=== PATIENT | male | born 1940 | race Caucasian/White ===

== ENCOUNTER 2018-01-07 12:35 | Inpatient (IN) | payer OTHER ==
[~2018-01-07] VITALS: Ht 172.7 cm; Wt 55.8 kg
--- NOTE | ~2018-01-07 | P ---
[facility] [place] [address] PROCEDURE REPORT Name: FREDO RASCON Clarence Room #: 222-P [facility] IN M.R.#: [id number] Admission: 01/07/18 Attend Phys: Levon London MD Discharge: Date of : 41 Report #: [id number] THIS REPORT FOR: //name// CC: Raffy Rogers MD [facility] Karley London INPATIENT COLONOSCOPY REPORT BRIEF HISTORY: The patient is a 77-year-old male with change in bowel habits, rectal bleeding, abdominal pain and weight loss. POSTOPERATIVE DIAGNOSIS: Multiple colon polyps. MEDICATIONS: Deep sedation with propofol per anesthesia. SPECIMENS: 1. Cecal polyp. 2. Polyp at 60 cm. 3. Polyp at 40 cm. ESTIMATED BLOOD LOSS: 3 mL. PROCEDURE: Colonoscopy to cecum and terminal ileum with snare polypectomy. FINDINGS: Prior to propofol sedation, the procedure of colonoscopy discussed with the patient as well as potential risks and its complications. He indicates he understands and desires to proceed. DESCRIPTION OF PROCEDURE: With the patient in the left lateral decubitus position, digital examination was completed, which revealed no abnormalities. Subsequently, the Olympus video colonoscope was introduced into the rectum, advanced under direct vision to the cecum. Done with minimal difficulty. The cecum was identified by the ileocecal valve and the appendiceal orifice. I was able to visualize the distal segment of the terminal ileum, which was inspected and noted to be unremarkable. At that point, the scope was slowly withdrawn and careful circumferential views obtained, including retroflexing the scope in the ascending colon. Upon slow withdrawal of the scope, the prep had some limitations, but with vigorous irrigation and suctioning, we were able to obtain a good prep. The mucosa was within normal limits. Normal vascular pattern, normal light reflex. In the cecum, a 6-mm slightly nodular flat polyp was seen and removed by cold snare polypectomy. At 60 cm, a 12-mm flat polyp was seen and removed by cold snare polypectomy was completed with biopsy forceps. Scope was further withdrawn and no additional abnormalities were noted until about 40 cm, at which point, a diminutive polyp was seen and removed by biopsy. Scope [facility] [address] [place] [address] PROCEDURE REPORT Name: TARAHFREDO Clarence Room #: 222-P ADM IN M.R.#: [id number] Admission: 01/07/18 Attend Phys: Levon London MD Discharge: Date of : 41 Report #: [id number] was withdrawn in the rectum. Upon retroflexion, no abnormalities were seen. Scope was withdrawn. The patient tolerated the procedure well. DISPOSITION: The patient with change in bowel habits, rectal bleeding, abdominal pain and weight loss. As far as the bleeding, I do not see any bleeding lesions. Blood likely came from the anal canal, though I do not see any lesions today. As far as his constipation, I do not see any obstructing lesion, suggest he use MiraLax on a daily basis. We will follow up on the path and make recommendations with regard to his polyps. Due to the fact that one of the polyps was more than 12 mm, we will have him return in 3 years for followup colonoscopy. <ELECTRONICALLY SIGNED> By: Fredo Basurto MD 01/13/18 0732 1401 0128 Fredo Basurto MD /nt
--- NOTE | ~2018-01-07 | PATH ---
[facility] [place] [address] PATHOLOGY RPT PROCEDURE Name: FREDO RASCON Clarence Room #: 222-P ADM IN M.R.#: [id number] Admission: 01/07/18 Date of : 41 Discharge: Report #: [id number] Path Case #: [id number] [facility] Accession Number: [id number] . 01 Material submitted: . PART A: GASTRITIS BIOPSY R/O H PYLORI PART B: CECAL POLYP PART C: COLON POLYP AT 60CM PART D: COLON POLYP AT 40CM BIOPSY . 01 Clinical history: . Pre-OP DX: Abdominal pain, dysphagia Post-OP DX: Gastritis, small hilar hernia, colon polyps . 02 Diagnosis: A. Gastric biopsy: - Mild chronic gastritis arising in the background of chronic reactive gastropathy. - Focal intestinal metaplasia. - The immunoperoxidase stains for Helicobacter pylori is negative. . B. Colon biopsy, "cecal polyp": - Fragments of tubular adenoma. - There is no evidence of high-grade dysplasia or malignancy. . C. Colon biopsy, "colon polyp at 60 cm": - Tubular adenoma. - There is no evidence of high-grade dysplasia or malignancy. . D. Colonic mucosa, "colon polyp at 40 cm", biopsy: - Tubular adenoma. - There is no evidence of high-grade dysplasia or malignancy. . (SHA:juana; 01/13/2018) ELXY/01/13/2018 . 02 Electronically signed: . Ra Gifford MD, Pathologist NPI- [id number] . 01 Gross description: . A. Received in formalin labeled "Fredo Rascon, gastritis, rule out H. pylori," are 4 segments of anton soft tissue measuring 1.2 x 0.7 x 0.2 cm in aggregate dimensions and ranging from 0.4 to 0.5 cm in maximum dimension. The specimen is submitted entirely in cassette A1. . B. Received in formalin labeled "Fredo Rascon, cecal polyp," [place] [address] PATHOLOGY RPT PROCEDURE Name: FREDO RASCON Room #: 222-P [facility] IN M.R.#: [id number] Admission: 01/07/18 Date of : 41 Discharge: Report #: [id number] Path Case #: [id number] segment of anton soft tissue measuring 0.8 cm in maximum dimension. The specimen is entirely submitted in cassette B1. . C. Received in formalin labeled "Fredo Rascon, colon polyp 60 cm," are multiple segments of anton soft tissue measuring 1.8 x 0.2 x 0.1 cm in aggregate dimensions. The specimen is filtered and entirely submitted in cassette C1. . D. Received in formalin labeled "Fredo Rascon, colon polyp at 40 cm," is a single segment of anton soft tissue measuring 0.4 cm in maximum dimension. The specimen is entirely submitted in cassette D1. (TSD; 01/12/2018) TOB/TOB . 02 Pathologist provided ICD-10: K29.50, K31.9, D12.0, D12.6 . 02 CPT . 460308, 528900, 331343, 563125, D81228 Specimen Comment: A courtesy copy of this report has been sent to Specimen Comment: [phone], , , . Specimen Comment: Report sent to ,DR STANLEY,DR SNYDER / DR SOLO Specimen Comment: A duplicate report has been generated due to demographic updates. Performed at: [address] [facility], [place], [place] [id number] MD Reji Martinez MD Phone: [phone] Performed at: [address] [facility] [id number] MD Mary Ritchie MD Phone: [phone]
--- NOTE | ~2018-01-07 | EKG ---
[facility] [place] [address] [place] [address] ELECTROCARDIOGRAM REPORT Name: FREDO RASCON Room #: REG RENETTA Bailon#: [id number] Admission: 01/07/18 Attend Phys: Discharge: Date of : 41 Report #: [id number] THIS REPORT FOR: //name// [facility] ED Test Date: 2018-01-07 Test Time: 13:52:04 Pat Name: FREDO RASCON Department: Room: Gender: Conveyor Loader: hayden : 1940 Requested By: Anjana Ontiveros Order Number: [id number] MD: Measurements Intervals [place] Rate: 73 P: 100 MS: 239 QRS: 61 QRSD: 91 T: -23 QT: 379 QTc: 418 Interpretive Statements Sinus rhythm Atrial premature complexes Prolonged MS interval Borderline T abnormalities, inferior leads Compared to ECG 10/11/2015 06:58:46 Atrial premature complex(es) now present T-wave abnormality still present [email or web address] By: 1352 1352 Epiphany Epiphany, /EPI
--- NOTE | ~2018-01-07 | P ---
[facility] [place] [address] PROCEDURE REPORT Name: FREDO RASCON Clarence Room #: 222-P [facility] IN M.R.#: [id number] Admission: 01/07/18 Attend Phys: Levon London MD Discharge: Date of : 41 Report #: [id number] THIS REPORT FOR: //name// CC: Raffy Rogers MD [facility] Karley London DATE OF SERVICE: 01/07/2018 BRIEF HISTORY: The patient is a 77-year-old male with abdominal pain. He also has had bouts of solid food dysphagia. In addition, there has been weight loss. PREOPERATIVE DIAGNOSES: Abdominal pain, dysphagia, weight loss. POSTOPERATIVE DIAGNOSES: Moderate diffuse gastritis. MEDICATIONS: Deep sedation with propofol per anesthesia. SPECIMEN: Biopsies of gastritis. ESTIMATED BLOOD LOSS: 3 mL. PROCEDURE: EGD with biopsy, Flood dilation. FINDINGS: Prior to propofol sedation, procedure of upper endoscopy discussed with the patient as well as potential risks and its complications. He indicates he understands and desires to proceed. DESCRIPTION OF PROCEDURE: With the patient in left lateral decubitus position, the Olympus video endoscope was inserted in the cervical esophagus under direct vision without difficulty. Examination of this organ through its length revealed normal esophageal mucosa down the squamocolumnar junction. The squamocolumnar junction was inspected and noted to be unremarkable. No ulcers or erosions were seen. However, a small hiatus hernia was noted. The mucosa and hernia was unremarkable. In view of his dysphagia, stricture was not seen. Scope was advanced in the stomach, was examined on end view as well as retroflexed views. There was a pattern of a diffuse erythematous gastritis involving essentially the entire stomach; however, the mucosa was intact. No ulcers or erosions were seen. There were no retained solids or liquids in the stomach. Upon retroflexion, no abnormalities were noted. The pylorus, duodenal bulb and postbulbar duodenal sweep were inspected and noted to be unremarkable. At that point, scope was withdrawn. Careful circumferential views confirmed the above finding. The patient tolerated the procedure well. Biopsies obtained of the gastritis. [address] [address] PROCEDURE REPORT Name: FREDO RASCON Room #: 222-P [facility] IN M.R.#: [id number] Admission: 01/07/18 Attend Phys: Levon London MD Discharge: Date of : 41 Report #: [id number] Subsequently, he was dilated with passage of a 50-English Flood dilator due to symptoms of dysphagia. DISPOSITION: The patient with abdominal pain and also dysphagia. I did not find evidence of a stricture. However, based on symptoms, he was dilated. Part of his problem may be the fact that he is edentulous. If dilation helps, we can repeat on as needed basis in the future. We will follow up on biopsies. We will treat empirically at this point with a PPI or H2 lynne. Proceed with colonoscopy for evaluation of his change in bowel habits and rectal bleeding. <ELECTRONICALLY SIGNED> By: Fredo Basurto MD 01/13/18 0732 1316 0123 Fredo Basurto MD /nt
[~2018-01-07 12:35] MED LIST: ACID CONTROL20 MG PO; ALTACE10 M1 PO; ASPIRIN325 PO; BACTRIM 400-801 EACH; BACTRIM DS TAB1 EACH PO; BENICAR; BENICAR40 MG PO; BROVANA15 MCG/2 M IH; CELEBREX 200 M200 M1 PO; CELEBREX 200 M200 MG PO; CELEBREX50 MG; CYCLOBENZAPRINE10 MG; EFFIENT10 MG PO; FEXOFENADINE-P1 EACH PO; FISHOIL PO; FLEXERIL PO; LIPITOR80 MG PO; LOPRESSOR PO; NITROGLYCERIN0.4 MG SL; NORCO 5-325 TA1 EACH PO; PLAVIX 75 MG TA75 M1; PLAVIX 75 MG TA75 M1 PO; PLAVIX 75 MG TA75 MG PO; SPIRIVA INH; TAMSULOSIN HCL0.4 M1; TOPROL XL25 MG PO; ZETIA10 MG PO
[2018-01-07 12:38] VITALS: BP 123/75
[2018-01-07 13:31] LABS: ABSOLUTE NEUTROPHILS 6.7 thou/uL (1.4-8.2); BASOPHILS 1.3 % (0.0-2.0); EOSINOPHILS 1.8 % (0.0-3.0); HEMATOCRIT 44.2 % (42.0-52.0); LYMPHOCYTES 13.6 % (24.0-44.0); MCH 29.7 pg (26.0-34.0); MCHC 33.9 g/dL (28.0-37.0); MCV 87.4 fL (80.0-100.0); MONOCYTES 4.4 % (1.0-8.0); PLATELET COUNT 274 thou/uL (150-400); POLYS 78.9 % (36.0-66.0); RBC 5.06 mil/uL (4.50-6.00); RDW 16.1 % (10.5-14.5); WBC 8.5 thou/uL (4.0-11.0)
[2018-01-07 13:40] LABS: CALCIUM 9.8 mg/dL (8.5-10.1); POTASSIUM 4.5 mmol/L (3.5-5.1)
[2018-01-07 13:46] LABS: ALBUMIN 3.7 g/dL (3.4-5.0); TOTAL BILIRUBIN 0.5 mg/dL (<0.1-1.0); TOTAL PROTEIN 7.8 g/dL (6.4-8.2)
[2018-01-07 14:23] LABS: URINE BILIRUBIN NEGATIVE (Negative); URINE BLOOD 2+ (Negative); URINE CLARITY CLEAR; URINE COLOR YELLOW; URINE GLUCOSE-RANDOM* NEGATIVE (Negative); URINE KETONES NEGATIVE (Negative); URINE LEUKOCYTES-REFLEX NEGATIVE (Negative); URINE NITRITE-REFLEX NEGATIVE (Negative); URINE PROTEIN (DIPSTICK) NEGATIVE (Negative); URINE SPECIFIC GRAVITY 1.025 (1.005-1.035); URINE UROBILINOGEN 0.2 E.U./dl (0.2-1.0)
[2018-01-07 14:35] LABS: BACTERIA-REFLEX 1-9 Few /HPF (None Seen); CASTS None Seen /LPF (None Seen); CRYSTALS None Seen /LPF (None Seen); SQUAMOUS None Seen /LPF (0-3); URINE RBC 3-10 Few /HPF (0-2); URINE WBC-REFLEX 0-5 Rare /HPF (0-5)
[2018-01-07] MEDS ORDERED: PHENERGAN 25 MG25 M1 PO (15:49)
[2018-01-07] MEDS ORDERED: MIRALAX17 GM PO (15:49)
[2018-01-07 19:38] VITALS: BP 121/67
[2018-01-07 19:49] VITALS: BP 121/67
[2018-01-07 21:44] VITALS: BP 110/56
[2018-01-08] VITALS (7 sets, daily range): BP systolic 99–146; BP diastolic 47–65
[2018-01-08 05:59] LABS: HEMATOCRIT 39.2 % (42.0-52.0); MCHC 33.1 g/dL (28.0-37.0); MCV 87.5 fL (80.0-100.0); RBC 4.48 mil/uL (4.50-6.00); RDW 16.2 % (10.5-14.5); WBC 9.1 thou/uL (4.0-11.0)
[2018-01-08 06:01] LABS: CALCIUM 8.9 mg/dL (8.5-10.1); CREATININE 0.9 mg/dL (0.7-1.3); POTASSIUM 4.5 mmol/L (3.5-5.1)
[2018-01-09] VITALS (7 sets, daily range): BP systolic 95–128; BP diastolic 44–70
[2018-01-09 07:25] LABS: ABSOLUTE NEUTROPHILS 5.8 thou/uL (1.4-8.2); BASOPHILS 1.2 % (0.0-2.0); EOSINOPHILS 2.3 % (0.0-3.0); HEMATOCRIT 37.4 % (42.0-52.0); HEMOGLOBIN 12.8 gm/dL (14.0-18.0); LYMPHOCYTES 10.4 % (24.0-44.0); MCH 29.8 pg (26.0-34.0); MCHC 34.2 g/dL (28.0-37.0); MCV 87.3 fL (80.0-100.0); MONOCYTES 6.6 % (1.0-8.0); PLATELET COUNT 230 thou/uL (150-400); POLYS 79.5 % (36.0-66.0); RBC 4.29 mil/uL (4.50-6.00); RDW 15.7 % (10.5-14.5); WBC 7.3 thou/uL (4.0-11.0)
[2018-01-09 07:35] LABS: CALCIUM 8.5 mg/dL (8.5-10.1); MAGNESIUM 1.9 mg/dL (1.8-2.4); POTASSIUM 3.9 mmol/L (3.5-5.1)
[2018-01-09 08:07] LABS: FOLIC ACID 5.4 ng/mL (8.6-58.9)
[2018-01-10 08:17] VITALS: BP 149/63
[2018-01-10 09:49] LABS: ABSOLUTE NEUTROPHILS 4.4 thou/uL (1.4-8.2); BASOPHILS 1.4 % (0.0-2.0); EOSINOPHILS 5.1 % (0.0-3.0); HEMATOCRIT 39.4 % (42.0-52.0); HEMOGLOBIN 13.1 gm/dL (14.0-18.0); LYMPHOCYTES 15.5 % (24.0-44.0); MCH 29.3 pg (26.0-34.0); MCHC 33.4 g/dL (28.0-37.0); MCV 87.7 fL (80.0-100.0); PLATELET COUNT 250 thou/uL (150-400); RBC 4.49 mil/uL (4.50-6.00); RDW 15.8 % (10.5-14.5); WBC 6.3 thou/uL (4.0-11.0)
[2018-01-10 10:06] LABS: ALBUMIN 3.1 g/dL (3.4-5.0); CALCIUM 8.9 mg/dL (8.5-10.1); CREATININE 0.9 mg/dL (0.7-1.3); MAGNESIUM 2.1 mg/dL (1.8-2.4); POTASSIUM 4.4 mmol/L (3.5-5.1); TOTAL BILIRUBIN 0.5 mg/dL (<0.1-1.0); TOTAL PROTEIN 6.4 g/dL (6.4-8.2)
[2018-01-10 19:48] VITALS: BP 136/72
[2018-01-11 07:56] VITALS: BP 134/62
[2018-01-11 08:39] LABS: ABSOLUTE NEUTROPHILS 7.6 thou/uL (1.4-8.2); BASOPHILS 1.4 % (0.0-2.0); EOSINOPHILS 1.1 % (0.0-3.0); HEMOGLOBIN 14.1 gm/dL (14.0-18.0); LYMPHOCYTES 11.9 % (24.0-44.0); MCH 29.5 pg (26.0-34.0); MCHC 33.6 g/dL (28.0-37.0); MCV 87.8 fL (80.0-100.0); MONOCYTES 6.9 % (1.0-8.0); PLATELET COUNT 279 thou/uL (150-400); POLYS 78.7 % (36.0-66.0); RBC 4.79 mil/uL (4.50-6.00); RDW 15.2 % (10.5-14.5); WBC 9.6 thou/uL (4.0-11.0)
[2018-01-11 08:54] LABS: CALCIUM 8.6 mg/dL (8.5-10.1); POTASSIUM 4.2 mmol/L (3.5-5.1)
[2018-01-11 20:00] VITALS: BP 158/68
[2018-01-12 06:54] LABS: ABSOLUTE NEUTROPHILS 13.8 thou/uL (1.4-8.2); BASOPHILS 0.3 % (0.0-2.0); HEMATOCRIT 35.3 % (42.0-52.0); LYMPHOCYTES 2.4 % (24.0-44.0); MCHC 33.8 g/dL (28.0-37.0); MCV 85.9 fL (80.0-100.0); MONOCYTES 5.3 % (1.0-8.0); PLATELET COUNT 245 thou/uL (150-400); RBC 4.11 mil/uL (4.50-6.00); RDW 15.2 % (10.5-14.5)
[2018-01-12 06:58] LABS: HEMOGLOBIN 11.9 gm/dL (14.0-18.0)
[2018-01-12 07:04] LABS: POTASSIUM 3.4 mmol/L (3.5-5.1)
[2018-01-12 07:40] VITALS: BP 94/53
[2018-01-12 22:47] VITALS: BP 95/53
[2018-01-13 07:24] LABS: HEMATOCRIT 35.4 % (42.0-52.0); MCH 29.5 pg (26.0-34.0); MCHC 33.9 g/dL (28.0-37.0); MCV 87.2 fL (80.0-100.0); PLATELET COUNT 171 thou/uL (150-400); RBC 4.06 mil/uL (4.50-6.00); RDW 15.4 % (10.5-14.5); WBC 6.5 thou/uL (4.0-11.0)
[2018-01-13 07:45] LABS: ALBUMIN 2.2 g/dL (3.4-5.0); CALCIUM 7.9 mg/dL (8.5-10.1); CREATININE 0.9 mg/dL (0.7-1.3); MAGNESIUM 1.7 mg/dL (1.8-2.4); POTASSIUM 3.8 mmol/L (3.5-5.1); TOTAL BILIRUBIN 0.5 mg/dL (<0.1-1.0); TOTAL PROTEIN 4.7 g/dL (6.4-8.2)
[2018-01-13 08:06] VITALS: BP 101/58
[2018-01-13 08:54] LABS: ABSOLUTE NEUTROPHILS 4.9 thou/uL (1.4-8.2); ANISOCYTOSIS 1+
[2018-01-13 22:52] VITALS: BP 124/61
[2018-01-14 07:35] VITALS: BP 143/70
[2018-01-14 20:11] VITALS: BP 130/65
[2018-01-15 08:11] VITALS: BP 110/64
[2018-01-15 09:55] VITALS: BP 110/64
[2018-01-15] MEDS ORDERED: PEPCID20 MG PO (10:52)
== END 2018-01-15 16:57 | disposition home health service (06) | DRG 391 ==
LOC: ER 12:35 → EROBS 16:31 → ER 16:31 → 4E 19:39 → SICU 20:07 → 4E 20:07 → SICU 01-08 09:22 → ENTRNSPT 01-15 16:37 → SICU 01-15 16:57
PROVIDERS: Emergency Medicine; Hospitalist; Nurse Practitioner Family
PROC: 0DB68ZX Excision of Stomach, Via Natural or Artificial Opening Endoscopic, Diagnostic (ICD-10-PCS; principal; 2018-01-07)
PROC: 0D758ZZ Dilation of Esophagus, Via Natural or Artificial Opening Endoscopic (ICD-10-PCS; principal; 2018-01-07)
PROC: 0DBH8ZZ Excision of Cecum, Via Natural or Artificial Opening Endoscopic (ICD-10-PCS; 2018-01-13)
DX: K29.70 Gastritis, unspecified, without bleeding (principal); E43 Unspecified severe protein-calorie malnutrition; Z68.1 Body mass index [BMI] 19.9 or less, adult; K62.5 Hemorrhage of anus and rectum; K22.2 Esophageal obstruction; M19.90 Unspecified osteoarthritis, unspecified site; I73.9 Peripheral vascular disease, unspecified; E78.5 Hyperlipidemia, unspecified; I25.5 Ischemic cardiomyopathy; J44.9 Chronic obstructive pulmonary disease, unspecified; K59.00 Constipation, unspecified; I50.9 Heart failure, unspecified; I25.10 Atherosclerotic heart disease of native coronary artery without angina pectoris; K63.5 Polyp of colon; R29.6 Repeated falls; E03.9 Hypothyroidism, unspecified; M62.84 Sarcopenia; E78.00 Pure hypercholesterolemia, unspecified; E53.8 Deficiency of other specified B group vitamins; D64.9 Anemia, unspecified; E16.2 Hypoglycemia, unspecified; F03.90 Unspecified dementia, unspecified severity, without behavioral disturbance, psychotic disturbance, mood disturbance, and anxiety; K44.9 Diaphragmatic hernia without obstruction or gangrene; I11.0 Hypertensive heart disease with heart failure; D36.7 Benign neoplasm of other specified sites; G89.29 Other chronic pain; R13.10 Dysphagia, unspecified; M54.9 Dorsalgia, unspecified; I25.2 Old myocardial infarction; Z88.0 Allergy status to penicillin; Z87.891 Personal history of nicotine dependence; Z79.899 Other long term (current) drug therapy; Z95.5 Presence of coronary angioplasty implant and graft; Z23 Encounter for immunization
CPT/HCPCS: 10084; 15002; 62110; 62900; 70005

== ENCOUNTER 2018-04-06 16:29 | Inpatient (IN) | payer OTHER ==
[~2018-04-06] VITALS: Ht 172.7 cm; Wt 54.7 kg
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
[~2018-04-06 16:29] MED LIST changes: +MIRALAX17 GM PO; +PEPCID20 MG PO; +PHENERGAN 25 MG25 M1 PO
[2018-04-06 16:53] VITALS: BP 109/67
[2018-04-06 17:40] LABS: ABSOLUTE NEUTROPHILS 12.2 thou/uL (1.4-8.2); BASOPHILS 1.3 % (0.0-2.0); EOSINOPHILS 0.8 % (0.0-3.0); HEMATOCRIT 43.4 % (42.0-52.0); HEMOGLOBIN 14.6 gm/dL (14.0-18.0); LYMPHOCYTES 12.5 % (24.0-44.0); MCH 28.2 pg (26.0-34.0); MCHC 33.7 g/dL (28.0-37.0); MCV 83.7 fL (80.0-100.0); MONOCYTES 4.8 % (1.0-8.0); PLATELET COUNT 397 thou/uL (150-400); POLYS 80.6 % (36.0-66.0); RBC 5.19 mil/uL (4.50-6.00); RDW 14.7 % (10.5-14.5); WBC 15.1 thou/uL (4.0-11.0)
[2018-04-06 17:58] LABS: CALCIUM 9.7 mg/dL (8.5-10.1); CREATININE 1.3 mg/dL (0.7-1.3); POTASSIUM 5.2 mmol/L (3.5-5.1)
[2018-04-06 18:05] LABS: ALBUMIN 3.7 g/dL (3.4-5.0); TOTAL BILIRUBIN 0.3 mg/dL (<0.1-1.0)
[2018-04-06 19:42] LABS: URINE BILIRUBIN NEGATIVE (Negative); URINE BLOOD 2+ (Negative); URINE CLARITY CLEAR; URINE COLOR YELLOW; URINE GLUCOSE-RANDOM* NEGATIVE (Negative); URINE KETONES NEGATIVE (Negative); URINE LEUKOCYTES-REFLEX 3+ (Negative); URINE NITRITE-REFLEX NEGATIVE (Negative); URINE PROTEIN (DIPSTICK) TRACE (Negative); URINE UROBILINOGEN 0.2 E.U./dl (0.2-1.0)
[2018-04-06 19:51] LABS: URINE RBC 3-10 Few /HPF (0-2); URINE WBC-REFLEX >25 Many /HPF (0-5)
[2018-04-06 19:52] LABS: CASTS None Seen /LPF (None Seen); CRYSTALS None Seen /LPF (None Seen); SQUAMOUS None Seen /LPF (0-3)
[2018-04-06 21:59] VITALS: BP 141/76
[2018-04-06 22:08] VITALS: BP 142/65
[2018-04-07 04:32] VITALS: BP 129/69
--- NOTE | 2018-04-07 06:12 | NUR ---
PATIENT ARRIVED LAST HS, REPORTS ABDOMINAL PAIN BETTER. ENEMA GIVEN THIS AM AND PT HAD LARGE SOFT STOOL.
[2018-04-07 07:28] VITALS: BP 105/49
[2018-04-07 15:24] VITALS: BP 115/49
--- NOTE | 2018-04-07 15:31 | NUR ---
PT ADMITTED RELATED TO RECTAL PAIN AND CONSTIPATION. CM REVIEWED CHART AND SPOKE WITH CARE TEAM. CM MET WITH PT AT BEDSIDE THIS DAY. PT IS A&O X4. CM ROLE INTRODUCED. PT INDICATED HE LIVES IN A HOUSE WITH HIS SPOUSE WITH NO STEPS TO ENTER AND NO STEPS INSIDE. PT INDICATED NO DME OR HH HX ALTHOUGH PREVIOUS NOTES INDICATE THAT PT HAD DISCHARED WITH SPECIALIZED HH. PT INDICATED HE PLANS TO RETURN HOME WITH NO NEEDS ONCE MEDICALLY STABLE. CM TO FOLLOW INDICATED WITH DC PLANNING.
--- NOTE | 2018-04-07 16:07 | NUR ---
ASSUMED CARE AT 0700. AXOX4. COLITIS/UTI/ELEVATED WBC. SEEN BY AT [facility]. COMFORT DURAN MD WILL REVIEW. OBSTIPATION ADDRESSED. MINERAL ENEMA X 1 RESULTED IN LARGE LIQUIDY BOWEL MOVEMENT. PT/OT ORDERED FOR WEAKNESS. IV FLUIDS GOING. IV ATB FOR COLITIS AND UTI. NAUSEA TREATED WITH ZOFRAN WITH RELIEF. NO S/S ACUTE DISTRESS NOTED OR REPORTED AT THIS TIME. WILL CONT TO MONITOR FOR ANY CHANGES IN CONDITION.
[2018-04-07 17:12] LABS: GLYCOHEMOGLOBIN (HGB A1C) 5.9 % (4.8-5.6)
[2018-04-07 19:35] VITALS: BP 92/65
[2018-04-08 03:40] VITALS: BP 127/58
--- NOTE | 2018-04-08 04:24 | NUR ---
Pt. rested quietly in bed when checked on during frequent rounds. He offers no c/o pain. Uses the urinal. Bed alarm is on.
[2018-04-08 06:18] LABS: CALCIUM 8.5 mg/dL (8.5-10.1); CREATININE 0.9 mg/dL (0.7-1.3); MAGNESIUM 1.9 mg/dL (1.8-2.4); POTASSIUM 4.1 mmol/L (3.5-5.1)
[2018-04-08 07:30] VITALS: BP 124/47
[2018-04-08 12:47] LABS: HEMATOCRIT 36.8 % (42.0-52.0); HEMOGLOBIN 12.3 gm/dL (14.0-18.0); MCH 28.2 pg (26.0-34.0); MCHC 33.4 g/dL (28.0-37.0); MCV 84.5 fL (80.0-100.0); RBC 4.35 mil/uL (4.50-6.00); RDW 14.8 % (10.5-14.5); WBC 8.4 thou/uL (4.0-11.0)
[2018-04-08 14:12] VITALS: BP 104/82
--- NOTE | 2018-04-08 14:28 | NUR ---
ASSUMED PT CARE AT 0645. PT IS A/OX4 WITH NO ISSUES OR CONCERNS. REPORT FROM THAT PT IS D/C TO HOME WITH HOME HEALTH. WILL CONTINUE TO MONITOR
[2018-04-08] MEDS ORDERED: MUCINEX600 MG PO (14:31)
[2018-04-08] MEDS ORDERED: SENNA PLUS TAB1 EACH PO (14:31)
[2018-04-08] MEDS ORDERED: FLAGYL500 M1 PO (14:33)
[2018-04-08] MEDS ORDERED: CIPRO500 MG PO (14:33)
[2018-04-08 14:49] VITALS: BP 104/82
--- NOTE | 2018-04-08 15:32 | NUR ---
per 5n liaison pt appropriate for 5n acute rehab per dr rebolledo, pt in not respective to rehab, will cont watch. pt is respective to home with specialized home health. referral sent possible dc home tomorrow.
--- NOTE | 2018-04-09 05:02 | EKG ---
[address] [place] [address] ELECTROCARDIOGRAM REPORT Name: FREDO RASCON Room #: 451-P [facility] IN M.R.#: [id number] Admission: 04/06/18 Attend Phys: Luz Elena Navarrete MD Discharge: 04/08/18 Date of : 41 Report #: [id number] THIS REPORT FOR: //name// [facility] Test Date: 2018-04-08 Test Time: 13:34:33 Pat Name: FREDO RASCON Department: Room: 451 Gender: M [employer] Supervisor: Jason CARREON : 1940 Requested By: Luz Elena Navarrete Order Number: [id number] MD: Agusto Barrios Measurements Intervals [place] Rate: 74 P: 66 VA: 203 QRS: 53 QRSD: 91 T: 46 QT: 383 QTc: 425 Interpretive Statements Sinus rhythm Atrial premature complexes in couplets Early transition Non specific ST/T wave changes Compared to ECG 01/07/2018 13:52:04 No significant changes Electronically Signed On 04-09-2018 5:01:42 MEDIA SERVICES SPECIALIST by Agusto Barrios [email or web address] <ELECTRONICALLY SIGNED> By: Agusto Barrios MD 04/09/18 0501 1334 1334 Agusto Barrios MD /EPI
--- NOTE | 2018-04-09 08:40 | NUR ---
PATIENT DISCHARGED TO HOME YESTERDAY EVENING. HOME HEALTH ORDERS OBTAINED. DISCHARGE/HOME HEALTH AND DISCHARGE SUMMARY FAXED TO [facility]. CALL PLACED TO [facility]. STATES PATIENT HAS BEEN ACCEPTED AND WILL FACILITATE HOME HEALTH NEEDS ONCE ORDERS RECEIVED. UNIT CM/SW AWARE.
== END 2018-04-08 16:13 | disposition home health service (06) | DRG 871 ==
LOC: ER 16:29 → 4W 20:26 → EROBS 20:26 → 4W 22:05 → ENTRNSPT 04-08 15:16 → EDTRNSPTSTS 04-08 15:19 → 4W 04-08 16:13
PROVIDERS: Nurse Practitioner Acute Care; Physician Assistant; ADMIT Internal Medicine
DX: A41.9 Sepsis, unspecified organism (principal); N17.0 Acute kidney failure with tubular necrosis; N39.0 Urinary tract infection, site not specified; K52.9 Noninfective gastroenteritis and colitis, unspecified; G20 Parkinson's disease; K44.9 Diaphragmatic hernia without obstruction or gangrene; E03.9 Hypothyroidism, unspecified; E88.81 Metabolic syndrome and other insulin resistance; R73.9 Hyperglycemia, unspecified; D72.829 Elevated white blood cell count, unspecified; K59.00 Constipation, unspecified; Z88.0 Allergy status to penicillin; Z79.899 Other long term (current) drug therapy
CPT/HCPCS: 10040; 10045

== ENCOUNTER 2019-03-11 12:12 | Emergency (ER) | payer OTHER ==
[~2019-03-11] VITALS: Ht 172.7 cm; Wt 54.0 kg
[~2019-03-11 12:12] MED LIST changes: +CIPRO500 MG PO; +FLAGYL500 M1 PO; +MUCINEX600 MG PO; +SENNA PLUS TAB1 EACH PO
[2019-03-11 13:14] LABS: ABSOLUTE NEUTROPHILS 8.5 thou/uL (1.4-8.2); BASOPHILS 1.1 % (0.0-2.0); HEMATOCRIT 49.6 % (42.0-52.0); HEMOGLOBIN 16.1 gm/dL (14.0-18.0); LYMPHOCYTES 16.6 % (24.0-44.0); MCH 28.2 pg (26.0-34.0); MCHC 32.4 g/dL (28.0-37.0); MCV 87.1 fL (80.0-100.0); MONOCYTES 7.4 % (1.0-8.0); PLATELET COUNT 426 thou/uL (150-400); POLYS 72.9 % (36.0-66.0); RDW 15.1 % (10.5-14.5); WBC 11.6 thou/uL (4.0-11.0)
[2019-03-11 13:18] LABS: CREATININE 1.2 mg/dL (0.7-1.3)
[2019-03-11 13:23] LABS: ALBUMIN 3.7 g/dL (3.4-5.0); TOTAL BILIRUBIN 0.5 mg/dL (<0.1-1.0); TOTAL PROTEIN 8.2 g/dL (6.4-8.2)
[2019-03-11 14:04] LABS: URINE BLOOD 1+ (Negative); URINE GLUCOSE-RANDOM* NEGATIVE (Negative); URINE KETONES NEGATIVE (Negative); URINE LEUKOCYTES-REFLEX NEGATIVE (Negative); URINE PROTEIN (DIPSTICK) TRACE (Negative); URINE SPECIFIC GRAVITY 1.025 (1.005-1.035)
[2019-03-11 14:09] LABS: ICTOTEST (BILI CONFIRMATORY) Negative (Negative); URINE BILIRUBIN NEGATIVE (Negative); URINE CLARITY SL HAZY; URINE COLOR BROWNISH; URINE NITRITE-REFLEX POSITIVE (Negative)
[2019-03-11] MEDS ORDERED: FLOMAX0.4 MG PO ×2 (14:11)
[2019-03-11 14:15] LABS: SQUAMOUS None Seen /LPF (0-3); URINE RBC 3-10 Few /HPF (0-2); URINE WBC-REFLEX None Seen /HPF (0-5)
[2019-03-11 14:16] LABS: BACTERIA-REFLEX 1-9 Few /HPF (None Seen); CASTS None Seen /LPF (None Seen); CRYSTALS None Seen /LPF (None Seen)
[2019-03-11 14:19] VITALS: BP 148/58
== END 2019-03-11 14:24 | disposition home or self-care (01) ==
LOC: ER 12:12
PROVIDERS: Emergency Medicine
DX: K62.89 Other specified diseases of anus and rectum (principal); R33.9 Retention of urine, unspecified; M54.5 Low back pain; I10 Essential (primary) hypertension; M19.90 Unspecified osteoarthritis, unspecified site; Z87.891 Personal history of nicotine dependence; Z88.0 Allergy status to penicillin

== ENCOUNTER 2019-03-15 13:13 | Inpatient (IN) | payer OTHER ==
[~2019-03-15] VITALS: Ht 172.7 cm; Wt 61.7 kg
--- NOTE | ~2019-03-15 | HC ---
[facility] [place] [address] CONSULTATION Name: RASCONFREDO Clarence Room #: 433-I ADM IN M.R.#: [id number] Admission: 03/15/19 Attend Phys: Aman Owens MD Discharge: Date of : 41 Report #: [id number] THIS REPORT FOR: //name// CC: Aman Bernard Karley Ramsey Preston DATE OF SERVICE: 03/16/2019 CONSULTING PHYSICIAN: Dr. Suh. REASON FOR CONSULTATION: Possible rectal mass. ASSESSMENT: 1. Possible rectal mass. 2. Bright red blood per rectum. 3. Weight loss. 4. Coronary artery disease with stents, on Plavix. RECOMMENDATIONS: 1. Thank you for the consultation. I will follow along. 2. CT scan reviewed. Cannot palpate a mass on TIEN on my exam. We will await the flex sig results. 3. If the patient does have a rectal mass and if the rectal mass is cancerous, he will need staging with either a transrectal ultrasound or MRI with rectal protocol for evaluation of neoadjuvant chemoradiation therapy or surgery. Thank you for the consultation. HISTORY OF PRESENT ILLNESS: The patient is a 78-year-old gentleman who cannot recall much of this history and did not remember who I was after leaving the room and returning several minutes later. Therefore, most of the information was obtained from the chart. The patient presented to the ER with right lower quadrant abdominal pain, rectal bleeding. He currently denies any pain, nausea or vomiting. The patient was in the ER on 03/11/[address] scan of the abdomen and pelvis. At that time, he had a Marie catheter placed for urinary retention and was sent home. He had return of symptoms and re-presented to the hospital. The patient endorses chronic constipation history and a recent history of bright red blood per rectum for the last one month. He has lost approximately 40 pounds in the last 1 year. He has minimal appetite. He did have a recent colonoscopy in 2018. PAST MEDICAL HISTORY: 1. Coronary artery disease, status post several stents, on Plavix. [facility] [address] [place] [address] CONSULTATION Name: RASCONFREDO Room #: 433-I [facility] IN ..#: [id number] Admission: 03/15/19 Attend Phys: Aman Owens MD Discharge: Date of : 41 Report #: [id number] 2. COPD. 3. Arthritis. 4. History of colon polyps. 5. Hypertension. 6. CHF with ejection fraction of 25-30%. 7. Peripheral vascular disease. PAST SURGICAL HISTORY: 1. Right wrist surgery. 2. The patient adamantly denies abdominal surgery. SOCIAL HISTORY: Former smoker, no alcohol use, no drug use. FAMILY HISTORY: He is unaware of any family condition due to his family splitting up when he was 8 or 9 years old. REVIEW OF SYSTEMS: CONSTITUTIONAL: No fever. No chills. HEENT: Denies blurring of vision, double vision, headaches, hearing loss, sinus drainage or sore throat. Denies blurring of vision, double vision, headaches, hearing loss, sinus drainage or sore throat. CARDIOVASCULAR: See above and below. PULMONARY: See above and below. GASTROINTESTINAL: See above and below. GENITOURINARY: Denies dysuria or hematuria or kidney stones. No urinary frequency, urgency or incontinence. Denies dysuria or hematuria or kidney stones. No urinary frequency, urgency or incontinence. MUSCULOSKELETAL: No joint pain. No muscle pain. NEUROLOGICAL: Denies tremor, stroke or seizure. Denies tremor, stroke or seizure. HEMATOLOGIC / LYMPHATICS: Denies easy bruising, easy bleeding or enlarged lymph nodes. SKIN: No rash or ulceration. ENDOCRINE: No heat or cold intolerance PSYCHIATRIC: Denies depression, anxiety, or schizophrenia. PHYSICAL EXAMINATION: VITAL SIGNS: Temperature 36.7, pulse 59, respiratory rate 18, blood pressure 132/59, pulse ox 95% on room air. GENERAL: No apparent distress, alert and oriented x3. HEENT: PERRLA, EOMI, MMM, NCAT NECK: Supple. No LAD CARDIOVASCULAR: Regular rhythm and rate. Hemodynamically stable. Normal capillary refill. Regular rhythm and rate. Hemodynamically stable. Normal capillary refill. PULMONARY: Nonlabored. Clear to auscultation bilaterally [facility] [address] [place] [address] CONSULTATION Name: FREDO RASCON Room #: 433-I [facility] IN M.R.#: [id number] Admission: 03/15/19 Attend Phys: Aman Owens MD Discharge: Date of : 41 Report #: [id number] ABDOMEN: Soft, nontender, nondistended, no guarding, rebound or rigidity. RECTAL: Normal external appearance, minimal hemorrhoid disease. Normal sphincter tone. No masses palpated on digital rectal exam. EXTREMITIES: Calves soft, nontender, no edema. SKIN: No rashes or bruises. PSYCHIATRIC: Normal mood and affect Normal mood and affect NEUROLOGICAL: Grossly intact. CN II-XII grossly intact. MUSCULOSKELETAL: 5/5 strength in upper extremities and lower extremities bilaterally LYMPHATICS: No cervical, inguinal, or supraclavicular lymphadenopathy. LABORATORY DATA: White blood count 7.5, hemoglobin 13.6, hematocrit 41, platelets 315. Sodium 141, potassium 3.6, creatinine 1, total bilirubin 0.2, AST 13, ALT 15, alkaline phosphatase 122, albumin 3. CT OF THE CHEST: Impression: Extensive COPD changes. Mild patchy subpleural opacity in the right lower lobe posteriorly, suggesting possible mild pneumonia. CT OF THE ABDOMEN AND PELVIS: Impression: 1. Distal rectal mass-like circumferential mural thickening, maximum 1.5 cm thickness in about 4 cm in length without pericolonic inflammation. This raises concern for malignancy, although distal colitis is possible. 2. Right lung base, nonconsolidative infiltrate, possibly pneumonia. 3. Marked urinary bladder distention/dilation with a small right posterolateral diverticulum, 2 cm, without abnormal wall thickening. 4. Normal prostate gland size. 5. Calcified coronary artery disease and aortoiliac atherosclerosis. Right common iliac artery endovascular stent. 6. Small bilateral inguinal hernias, fat containing. By: [id number] 2343 Fernando Suh MD /nt
[~2019-03-15 13:13] MED LIST changes: +FLOMAX0.4 MG PO
[2019-03-15 13:55] VITALS: BP 147/65
[2019-03-15 16:00] LABS: ABSOLUTE NEUTROPHILS 5.1 thou/uL (1.4-8.2); BASOPHILS 0.3 % (0.0-2.0); HEMOGLOBIN 13.6 gm/dL (14.0-18.0); LYMPHOCYTES 18.8 % (24.0-44.0); MCH 28.6 pg (26.0-34.0); MCHC 33.2 g/dL (28.0-37.0); MCV 86.1 fL (80.0-100.0); MONOCYTES 9.4 % (1.0-8.0); PLATELET COUNT 315 thou/uL (150-400); POLYS 67.5 % (36.0-66.0); RBC 4.77 mil/uL (4.50-6.00); RDW 14.7 % (10.5-14.5); WBC 7.5 thou/uL (4.0-11.0)
[2019-03-15 16:12] LABS: CALCIUM 9.3 mg/dL (8.5-10.1); POTASSIUM 3.6 mmol/L (3.5-5.1)
[2019-03-15 16:25] LABS: TOTAL BILIRUBIN 0.2 mg/dL (<0.1-1.0); TOTAL PROTEIN 6.6 g/dL (6.4-8.2)
[2019-03-15 16:43] VITALS: BP 178/66
[2019-03-15] MEDS ORDERED: SYNTHROID50 MCG PO ×2 (17:07)
[2019-03-15] MEDS ORDERED: CELEBREX 200 M200 M1 PO ×2 (17:10)
[2019-03-15] MEDS ORDERED: AVAPRO300 MG PO ×2 (17:11)
--- NOTE | 2019-03-15 18:08 | NUR ---
PT RECIEVED TO [address] ST[address]ICE[address] DR[address] DUNBAR ADMITTING. PT ASSESSED AND ORIENTED TO . PLAN FOR TRANSFER TO TELE BED WHEN AVAILABLE FOR PT CARDIAC HISTORY. HAS CHRONIC BACK PAIN BUT DOES NOT TAKE PAIN MEDS FOR IT HE JUST RELAXES AND IT GETS BETTER. ABD CT THIS AFTERNOON. CONSULTED GI AND SURGERY. AT BEDSIDE.
[2019-03-15 21:05] VITALS: BP 156/72
--- NOTE | 2019-03-16 01:00 | NUR ---
ASSUMED PT CARE AT 1900. TELE D/C, PACK REMOVED. PT DENIES ANY PAIN EXCEPT CHRONIC BACK PAIN. PM MEDS GIVEN, ANTIBIOTICS RAN PER ORDER. URINE IS BLOOD TINGED. PT REQUESTING BROTH, TOLERATED WELL. SUPPOSITORY GIVEN WITH NO BM YET. UA TO BE COLLECTED TONIGHT. PT NOW RESTING COMFORTABLY IN BED, WILL CONTINE TO MONITOR.
[2019-03-16 06:25] VITALS: BP 121/60
[2019-03-16 07:19] VITALS: BP 124/56
[2019-03-16 07:44] VITALS: BP 146/53
[2019-03-16 07:54] VITALS: BP 140/87
--- NOTE | 2019-03-16 08:41 | NUR ---
INITIAL ASSESSMENT: Pt evaluated for d/c planning needs. Reviewed chart and spoke with nurse and pt. Pt is alert and oriented. Pt lives in house with spouse and was independent with ADL's prior to admission. Pt states he has no DME and has had [facility] in the past. Pt plans on returning home on d/c from hospital. Will remain available to assist as needed.
[2019-03-16 09:26] LABS: HEMATOCRIT 38.7 % (42.0-52.0); HEMOGLOBIN 12.6 gm/dL (14.0-18.0)
[2019-03-16 11:59] LABS: URINE BILIRUBIN NEGATIVE (Negative); URINE BLOOD 1+ (Negative); URINE CLARITY SL CLOUDY; URINE COLOR YELLOW; URINE GLUCOSE-RANDOM* NEGATIVE (Negative); URINE KETONES NEGATIVE (Negative); URINE LEUKOCYTES-REFLEX TRACE (Negative); URINE NITRITE-REFLEX NEGATIVE (Negative); URINE PROTEIN (DIPSTICK) TRACE (Negative); URINE SPECIFIC GRAVITY 1.015 (1.005-1.035)
[2019-03-16 12:22] LABS: CASTS None Seen /LPF (None Seen); SQUAMOUS 0-3 Few /LPF (0-3); URINE WBC-REFLEX 6-15 Few /HPF (0-5)
[2019-03-16 12:23] LABS: AMORPHOUS URATES Few /LPF (None Seen); BACTERIA-REFLEX 1-9 Few /HPF (None Seen); URINE RBC 3-10 Few /HPF (0-2)
[2019-03-16 15:30] VITALS: BP 132/59
[2019-03-16 20:00] VITALS: BP 115/75
[2019-03-17 04:05] VITALS: BP 133/60
--- NOTE | 2019-03-17 04:11 | NUR ---
ASSUMED PATIENT CARE AT 2100. ASSESSMENT CHARTED. MEDICATIONS GIVEN PER MAR. PATIENT IS ALERT AND ORIENTED X 4, VSS, O2 SATS WNL ON RA. PATIENT VOICES PAIN 3/10 ON HIS BACK BUT REFUSES ANY PRN PAIN MED AND JUST WANTS THE DICONFLENAC CREAM. PATIENT HAS IV ANTIBIOTICS INFUSING ALONG W FLUIDS. IV IS PATENT ON HIS R WRIST. PATIENT WAS UP TO BATHROOM THIS SHIFT; AMBULATING WELL WITH ONLY SUPERVISION. PATIENT IS NPO AFTER MIDNIGHT FOR A SIGMOIDOSCOPY. ENEMA TO BE GIVEN AT 0600. PER CM; PATIENT IS TO DC BACK HOME ONCE MEDICALLY STABLE. FALL PRECAUTIONS IN PLACE. PATIENT CALLS OUT APPROPRIATELY. DENIES NEEDS AT THIS TIME. WILL CONTINUE TO MONITOR AND FOLLOW PLAN OF CARE
--- NOTE | 2019-03-17 07:36 | NUR ---
I HAVE REVIEWED THE CHARTING BY EMY SOLIS RN AND AGREE.
[2019-03-17 09:31] VITALS: BP 158/65
[2019-03-17 10:57] LABS: HEMATOCRIT 39.5 % (42.0-52.0); HEMOGLOBIN 12.9 gm/dL (14.0-18.0)
[2019-03-17] MEDS ORDERED: CIPRO500 M1 PO ×2 (13:24)
[2019-03-17] MEDS ORDERED: FLAGYL500 M1 PO ×2 (13:24)
[2019-03-17 16:10] VITALS: BP 128/50
[2019-03-17 16:46] VITALS: BP 128/50
--- NOTE | 2019-03-17 18:10 | NUR ---
DC ORDERS RECEIVED. INSTRUCTIONS, SCRIPTS AND F/U APPOINTMENT REVIEWED WITH PT. VOLUNTEER ESCORTED PT TO MAIN ENTRANCE.
== END 2019-03-17 18:16 | disposition home or self-care (01) | DRG 377 ==
LOC: PRE 13:13 → 4S 13:30 → TBA 13:30 → 4S 14:01 → ENTRNSPT 03-17 18:03 → 4S 03-17 18:16
PROVIDERS: Hospitalist; Nurse Practitioner; ADMIT Hospitalist
PROC: 0DJD8ZZ Inspection of Lower Intestinal Tract, Via Natural or Artificial Opening Endoscopic (ICD-10-PCS; principal; 2019-03-17)
DX: K62.5 Hemorrhage of anus and rectum (principal); E43 Unspecified severe protein-calorie malnutrition; K52.9 Noninfective gastroenteritis and colitis, unspecified; I25.10 Atherosclerotic heart disease of native coronary artery without angina pectoris; R63.4 Abnormal weight loss; M19.90 Unspecified osteoarthritis, unspecified site; I73.9 Peripheral vascular disease, unspecified; N28.82 Megaloureter; K40.90 Unilateral inguinal hernia, without obstruction or gangrene, not specified as recurrent; I70.0 Atherosclerosis of aorta; I50.9 Heart failure, unspecified; M06.9 Rheumatoid arthritis, unspecified; I25.5 Ischemic cardiomyopathy; K59.09 Other constipation; I11.0 Hypertensive heart disease with heart failure; E86.0 Dehydration; J43.9 Emphysema, unspecified; E78.5 Hyperlipidemia, unspecified; R33.9 Retention of urine, unspecified; K59.00 Constipation, unspecified; F03.90 Unspecified dementia, unspecified severity, without behavioral disturbance, psychotic disturbance, mood disturbance, and anxiety; Z95.5 Presence of coronary angioplasty implant and graft; Z68.20 Body mass index [BMI] 20.0-20.9, adult; I25.2 Old myocardial infarction; Z86.010 Personal history of colon polyps; Z87.891 Personal history of nicotine dependence
CPT/HCPCS: 10102; 62110; 62900

== ENCOUNTER → 2019-07-02 | Outpatient (CLI) | payer OTHER ==
[~2019-07-02] MED LIST changes: +AVAPRO300 MG PO; +CIPRO500 M1 PO; +SYNTHROID50 MCG PO
== END ==
LOC: SJCVC 13:22
DX: R94.31 Abnormal electrocardiogram [ECG] [EKG] (principal); I44.0 Atrioventricular block, first degree; I49.3 Ventricular premature depolarization; I25.10 Atherosclerotic heart disease of native coronary artery without angina pectoris; I10 Essential (primary) hypertension; E78.00 Pure hypercholesterolemia, unspecified; J44.9 Chronic obstructive pulmonary disease, unspecified; I73.9 Peripheral vascular disease, unspecified; Z79.899 Other long term (current) drug therapy; Z87.891 Personal history of nicotine dependence

== ENCOUNTER → 2019-07-07 | Outpatient (CLI) | payer OTHER | LOC: SJCVCIMAG 11:39 | DX: R94.31 Abnormal electrocardiogram [ECG] [EKG] (principal); I44.0 Atrioventricular block, first degree; I65.23 Occlusion and stenosis of bilateral carotid arteries; I73.9 Peripheral vascular disease, unspecified; I25.10 Atherosclerotic heart disease of native coronary artery without angina pectoris; J44.9 Chronic obstructive pulmonary disease, unspecified; I10 Essential (primary) hypertension; E78.00 Pure hypercholesterolemia, unspecified; R29.6 Repeated falls ==

== ENCOUNTER → 2019-08-17 | Outpatient (CLI) | payer OTHER | LOC: SJCVC 09:55 | PROVIDERS: ATTEND Internal Medicine Cardiovascular Disease | DX: I44.0 Atrioventricular block, first degree (principal); R94.31 Abnormal electrocardiogram [ECG] [EKG]; I25.10 Atherosclerotic heart disease of native coronary artery without angina pectoris; I10 Essential (primary) hypertension; E78.00 Pure hypercholesterolemia, unspecified; I25.5 Ischemic cardiomyopathy; R42 Dizziness and giddiness; I73.9 Peripheral vascular disease, unspecified; J44.9 Chronic obstructive pulmonary disease, unspecified; Z82.49 Family history of ischemic heart disease and other diseases of the circulatory system; Z79.82 Long term (current) use of aspirin; Z79.899 Other long term (current) drug therapy; Z87.891 Personal history of nicotine dependence ==

== ENCOUNTER → 2020-04-11 | Outpatient (CLI) | payer OTHER | LOC: SJCVC 11:21 | PROVIDERS: ATTEND Internal Medicine Cardiovascular Disease | DX: R94.31 Abnormal electrocardiogram [ECG] [EKG] (principal); I25.10 Atherosclerotic heart disease of native coronary artery without angina pectoris; I10 Essential (primary) hypertension; E78.00 Pure hypercholesterolemia, unspecified; I73.9 Peripheral vascular disease, unspecified; I25.5 Ischemic cardiomyopathy; I77.9 Disorder of arteries and arterioles, unspecified; J44.9 Chronic obstructive pulmonary disease, unspecified; R07.9 Chest pain, unspecified; K21.9 Gastro-esophageal reflux disease without esophagitis; E55.9 Vitamin D deficiency, unspecified; Z79.891 Long term (current) use of opiate analgesic; Z79.899 Other long term (current) drug therapy; Z88.0 Allergy status to penicillin; Z87.891 Personal history of nicotine dependence ==

== ENCOUNTER → 2020-04-24 | Outpatient (CLI) | payer OTHER | LOC: SJCVCIMAG 07:56 | PROVIDERS: ATTEND Internal Medicine Cardiovascular Disease | DX: I25.10 Atherosclerotic heart disease of native coronary artery without angina pectoris (principal); R00.0 Tachycardia, unspecified; I73.9 Peripheral vascular disease, unspecified; I42.9 Cardiomyopathy, unspecified; E78.5 Hyperlipidemia, unspecified; Z88.0 Allergy status to penicillin; Z95.828 Presence of other vascular implants and grafts; Z79.82 Long term (current) use of aspirin; Z79.899 Other long term (current) drug therapy; Z86.73 Personal history of transient ischemic attack (TIA), and cerebral infarction without residual deficits; Z87.891 Personal history of nicotine dependence ==

== ENCOUNTER → 2020-04-25 | Outpatient (CLI) | payer OTHER | LOC: SJCVC 14:45 | PROVIDERS: ATTEND Nuclear Medicine Nuclear Cardiology | DX: I73.9 Peripheral vascular disease, unspecified (principal); I77.9 Disorder of arteries and arterioles, unspecified; I25.10 Atherosclerotic heart disease of native coronary artery without angina pectoris; I10 Essential (primary) hypertension; J44.9 Chronic obstructive pulmonary disease, unspecified; E78.00 Pure hypercholesterolemia, unspecified; I42.9 Cardiomyopathy, unspecified; Z95.5 Presence of coronary angioplasty implant and graft; Z98.890 Other specified postprocedural states; Z88.0 Allergy status to penicillin; Z87.891 Personal history of nicotine dependence; Z82.49 Family history of ischemic heart disease and other diseases of the circulatory system ==

== ENCOUNTER → 2020-05-03 | Outpatient (CLI) | payer OTHER ==
[~2020-05-03] VITALS: Ht 172.7 cm; Wt 61.2 kg
[~2020-05-03] MED LIST changes: +ANORO ELLIPTA1 EACH INH; +ECOTRIN325 MG PO; +LIPITOR40 MG PO; +PROAIR HFA8.5 GM INH; +VITAMIN C500 M1 PO; +VITAMIN D350 MCG PO
[2020-05-03 07:08] VITALS: BP 173/77
[2020-05-03 07:17] LABS: HEMATOCRIT 47.9 % (42.0-52.0); HEMOGLOBIN 15.9 gm/dL (14.0-18.0); MCH 28.7 pg (26.0-34.0); MCHC 33.1 g/dL (28.0-37.0); MCV 86.7 fL (80.0-100.0); RBC 5.53 mil/uL (4.50-6.00); RDW 14.3 % (10.5-14.5); WBC 9.9 thou/uL (4.0-11.0)
[2020-05-03 07:31] LABS: CALCIUM 9.3 mg/dL (8.5-10.1); CREATININE 1.3 mg/dL (0.7-1.3); POTASSIUM 4.3 mmol/L (3.5-5.1)
--- NOTE | 2020-05-05 17:38 | CATHLAB ---
[facility] [place] [address] INVASIVE PROCEDURE REPORT Name: FREDO RASCON Clarence Room #: REG LESLIE FortePadminiRosalba.#: [id number] Admission: 05/03/20 Attend Phys: Julio Aguilera MD Discharge: Date of : 42 Report #: [id number] THIS REPORT FOR: cc: Braulio Johnston Steven F. DO Mancuso, Gerald M. MD [facility] ~ APPROVED REPORT Study performed: 05/03/2020 09:44:45 Patient Details Patient Status: Out-Patient Room #: The patient is a 79 year-old male Event Personnel Raffy Rogers Ultrasound Technologist Sonographer, Deepa Ybarra RTR Monitor, Priti Villafana RTR, Maco Moran Kirsten RN street railway line installer Performed Left Heart Cath w/or w/o Coronaries [id number] [facility] Hemostasis w/ Mynx 80376 Initial Mod Sed Same Phys/QHP Gr5y [id number] Mod Sed Same Phys/QHP Ea [id number] Procedure Narrative The was infiltrated with 1% Lidocaine subcutaneous anesthesia. A SHEATH BRITE-TIP 6F X 11CM ([id number]) sheath was inserted into the RFA^. Coronary angiography was performed using coronary diagnostic catheters. The right coronary system was accessed and visualized with a JR4 catheter. The left coronary system was accessed and visualized with a JL4 catheter. The left ventricle was accessed and visualized with a PIGTAIL catheter. Left ventriculogram was performed in 30 degree projection. Closure device was deployed with a Fr [id number] 6/7F [id number]. The patient tolerated the procedure well and there were no complications associated with the procedure. There was no hematoma. Intraoperative Conscious Sedation Sedation start time: 8:13 Case end Time: 10:04 Fentanyl 25 mcg Versed 0.5 mg Sedation and contrast totals are combined between the runoff procedure and the heart cath. [facility] [email or web address] [address] INVASIVE PROCEDURE REPORT Name: FREDO RASCON Room #: REG Uvaldo#: [id number] Admission: 05/03/20 Attend Phys: Julio Aguilera, Discharge: Date of : 42 Report #: [id number] Fluoro Time: 11.52 minutes Dose: DAP 8960.80 cGycm2 719 mGy Contrast Type and Amount: Visipaque 209 ml Hemodynamics The aortic pressure is 181/76 mmHg with a mean of 116 mmHg. The left ventricular pressure is 178/6 mmHg with a mean of mmHg. The left ventricular end diastolic pressure is 13 mmHg. PCI Technique Lesion Percutaneous coronary intervention was performed on the Popliteal. PCI Technique Lesion 2 Percutaneous Coronary Intervention was performed on the Unspecified. Conclusion #1. Normal left ventricular size with inferior apical hypokinesis EF 45 to 50% #2 left main with mild disease giving rise to LAD and circumflex. #3 LAD with an eccentric focal 40% in-stent restenosis in the proximal LAD stent this vessel then is fairly well-preserved to the apex. No high-grade occlusive disease. #4 circumflex OM with mild to moderate disease no occlusive disease nondominant. #5 dominant right coronary with a long mid vessel segment of prior stent. There is mild in-stent restenosis and a 40 to 50% irregularity proximal to that stent supplying a relatively small but patent PDA and ROBB. Anatomically dominant. Recommendations and plan: Continue aggressive risk factor modification. No indication for coronary intervention. <ELECTRONICALLY SIGNED> By: Raffy Rogers MD, FACC 05/05/201736 36 36 Raffy Rogers MD, FACC /INF
== END | disposition home or self-care (01) ==
LOC: CATH 06:34
PROVIDERS: ATTEND Nuclear Medicine Nuclear Cardiology
DX: I25.10 Atherosclerotic heart disease of native coronary artery without angina pectoris (principal); T82.855A Stenosis of coronary artery stent, initial encounter; I70.212 Atherosclerosis of native arteries of extremities with intermittent claudication, left leg; I70.1 Atherosclerosis of renal artery; I10 Essential (primary) hypertension; J43.9 Emphysema, unspecified; E78.5 Hyperlipidemia, unspecified; I25.2 Old myocardial infarction; I42.9 Cardiomyopathy, unspecified; K21.9 Gastro-esophageal reflux disease without esophagitis; Z98.890 Other specified postprocedural states; Z79.899 Other long term (current) drug therapy; Z87.891 Personal history of nicotine dependence; Z79.82 Long term (current) use of aspirin; Z88.0 Allergy status to penicillin; Y83.8 Other surgical procedures as the cause of abnormal reaction of the patient, or of later complication, without mention of misadventure at the time of the procedure

== ENCOUNTER → 2020-08-29 | Outpatient (CLI) | payer OTHER | LOC: SJCVCIMAG 10:31 | PROVIDERS: ATTEND Nuclear Medicine Nuclear Cardiology | DX: I73.9 Peripheral vascular disease, unspecified (principal); M79.605 Pain in left leg; I77.9 Disorder of arteries and arterioles, unspecified; I25.10 Atherosclerotic heart disease of native coronary artery without angina pectoris; I10 Essential (primary) hypertension; E78.00 Pure hypercholesterolemia, unspecified; J44.9 Chronic obstructive pulmonary disease, unspecified; I25.5 Ischemic cardiomyopathy; Z88.0 Allergy status to penicillin; Z79.82 Long term (current) use of aspirin; Z79.899 Other long term (current) drug therapy; Z87.891 Personal history of nicotine dependence; Z82.49 Family history of ischemic heart disease and other diseases of the circulatory system ==

== ENCOUNTER → 2020-08-31 | Outpatient (CLI) | payer OTHER | LOC: HYPER 08:32 | PROVIDERS: ATTEND Emergency Medicine | DX: L97.522 Non-pressure chronic ulcer of other part of left foot with fat layer exposed (principal); S91.101A Unspecified open wound of right great toe without damage to nail, initial encounter; I73.89 Other specified peripheral vascular diseases; I25.10 Atherosclerotic heart disease of native coronary artery without angina pectoris; J44.9 Chronic obstructive pulmonary disease, unspecified; B37.49 Other urogenital candidiasis; E78.00 Pure hypercholesterolemia, unspecified; E66.9 Obesity, unspecified; I10 Essential (primary) hypertension; I25.5 Ischemic cardiomyopathy; F41.9 Anxiety disorder, unspecified; Z87.891 Personal history of nicotine dependence; Z79.82 Long term (current) use of aspirin; Z79.01 Long term (current) use of anticoagulants; Z68.22 Body mass index [BMI] 22.0-22.9, adult; X58.XXXA Exposure to other specified factors, initial encounter; Y93.89 Activity, other specified; Y92.89 Other specified places as the place of occurrence of the external cause; Y99.8 Other external cause status ==

== ENCOUNTER → 2020-09-07 | Outpatient (CLI) | payer OTHER | LOC: HYPER 07:43 | PROVIDERS: ATTEND Emergency Medicine | DX: L97.522 Non-pressure chronic ulcer of other part of left foot with fat layer exposed (principal); S91.102D Unspecified open wound of left great toe without damage to nail, subsequent encounter; I73.89 Other specified peripheral vascular diseases; B37.49 Other urogenital candidiasis; M19.90 Unspecified osteoarthritis, unspecified site; I25.10 Atherosclerotic heart disease of native coronary artery without angina pectoris; J44.9 Chronic obstructive pulmonary disease, unspecified; I10 Essential (primary) hypertension; E78.00 Pure hypercholesterolemia, unspecified; E66.9 Obesity, unspecified; F41.9 Anxiety disorder, unspecified; Z68.22 Body mass index [BMI] 22.0-22.9, adult; Z87.891 Personal history of nicotine dependence; Z79.899 Other long term (current) drug therapy; Z79.82 Long term (current) use of aspirin; Z79.01 Long term (current) use of anticoagulants; X58.XXXD Exposure to other specified factors, subsequent encounter ==

== ENCOUNTER → 2020-09-21 | Outpatient (CLI) | payer OTHER | LOC: HYPER 07:40 | PROVIDERS: ATTEND Emergency Medicine | DX: L97.522 Non-pressure chronic ulcer of other part of left foot with fat layer exposed (principal); S91.102D Unspecified open wound of left great toe without damage to nail, subsequent encounter; I73.89 Other specified peripheral vascular diseases; B37.49 Other urogenital candidiasis; M19.90 Unspecified osteoarthritis, unspecified site; I25.10 Atherosclerotic heart disease of native coronary artery without angina pectoris; J44.9 Chronic obstructive pulmonary disease, unspecified; E78.00 Pure hypercholesterolemia, unspecified; E66.9 Obesity, unspecified; I10 Essential (primary) hypertension; I25.5 Ischemic cardiomyopathy; F41.9 Anxiety disorder, unspecified; Z68.22 Body mass index [BMI] 22.0-22.9, adult; Z87.891 Personal history of nicotine dependence; Z79.82 Long term (current) use of aspirin; Z79.01 Long term (current) use of anticoagulants; X58.XXXD Exposure to other specified factors, subsequent encounter ==

== ENCOUNTER → 2021-01-11 | Outpatient (CLI) | payer OTHER ==
[~2021-01-11] MED LIST changes: +TAMSULOSIN HCL0.4 MG PO
== END ==
LOC: LAB 12:09
PROVIDERS: ATTEND Student in an Organized Health Care Education/Training Program
DX: Z01.812 Encounter for preprocedural laboratory examination (principal); Z20.822 Contact with and (suspected) exposure to COVID-19

== ENCOUNTER → 2021-01-15 | Outpatient (CLI) | payer OTHER ==
[~2021-01-15] VITALS: Ht 172.7 cm; Wt 62.6 kg
== END | disposition home or self-care (01) ==
LOC: GI
PROVIDERS: ATTEND Internal Medicine Gastroenterology
DX: R19.4 Change in bowel habit (principal); I10 Essential (primary) hypertension; I25.2 Old myocardial infarction; J43.9 Emphysema, unspecified; E78.5 Hyperlipidemia, unspecified; M19.90 Unspecified osteoarthritis, unspecified site; E03.9 Hypothyroidism, unspecified; I25.5 Ischemic cardiomyopathy; Z79.899 Other long term (current) drug therapy; Z98.890 Other specified postprocedural states; Z87.891 Personal history of nicotine dependence; Z86.718 Personal history of other venous thrombosis and embolism; Z79.01 Long term (current) use of anticoagulants
CPT/HCPCS: 62110; 62900

== ENCOUNTER → 2021-02-28 | Outpatient (CLI) | payer OTHER | LOC: SJCVCIMAG 07:09 | PROVIDERS: ATTEND Internal Medicine Cardiovascular Disease | DX: I65.23 Occlusion and stenosis of bilateral carotid arteries (principal); R94.31 Abnormal electrocardiogram [ECG] [EKG]; I25.10 Atherosclerotic heart disease of native coronary artery without angina pectoris; I10 Essential (primary) hypertension; E78.00 Pure hypercholesterolemia, unspecified; I25.5 Ischemic cardiomyopathy; I73.9 Peripheral vascular disease, unspecified; I77.9 Disorder of arteries and arterioles, unspecified; R29.6 Repeated falls; F03.90 Unspecified dementia, unspecified severity, without behavioral disturbance, psychotic disturbance, mood disturbance, and anxiety; Z79.82 Long term (current) use of aspirin; Z79.899 Other long term (current) drug therapy; F17.210 Nicotine dependence, cigarettes, uncomplicated; Z88.8 Allergy status to other drugs, medicaments and biological substances; Z82.49 Family history of ischemic heart disease and other diseases of the circulatory system ==